=== PATIENT | female | born 1990 | race Hispanic/Latino ===

== ENCOUNTER 2022-01-06 10:41 | Day surgery (SDC) | payer OTHER ==
[2022-01-06] MEDS ORDERED: hydrALAZINE 20 MG/ML VIAL SLOW IVP PRN (11:24)
[2022-01-06] MEDS ORDERED: Lactated Ringer's 1,000 ML IV SCH (11:30)
== END 2022-01-06 14:45 | disposition home health service (06) ==
LOC: CSHLD/OP 10:41
PROVIDERS: ATTEND Obstetrics & Gynecology
DX: Z01.89 Encounter for other specified special examinations (principal); O24.415 Gestational diabetes mellitus in pregnancy, controlled by oral hypoglycemic drugs; Z3A.36 36 weeks gestation of pregnancy
CPT/HCPCS: 76819; 96360; 96361; 99282

== ENCOUNTER 2022-01-11 09:12 | Outpatient (CLI) | payer OTHER | END 2022-01-11 09:13 | disposition home or self-care (01) | LOC: CSHLAB 09:12 | PROVIDERS: ATTEND Student in an Organized Health Care Education/Training Program | DX: Z20.822 Contact with and (suspected) exposure to COVID-19 (principal) | CPT/HCPCS: U0003; U0005 ==

== ENCOUNTER 2022-01-11 15:51 | Inpatient (IN) | payer OTHER ==
[2022-01-11 18:21] VITALS: BMI 38.9
[2022-01-11] MEDS ORDERED: Ibuprofen 800 MG TAB PO PRN (18:21)
[2022-01-11] MEDS ORDERED: HYDROcodone/Acetaminophen 5/325 mg Tablet PO PRN (18:21)
[2022-01-11] MEDS ORDERED: Butorphanol Tartrate 1 MG/ML VIAL SLOW IVP PRN (18:21)
[2022-01-11] MEDS ORDERED: hydrALAZINE 20 MG/ML VIAL SLOW IVP PRN (18:21)
[2022-01-11] MEDS ORDERED: Acetaminophen 500 MG TAB PO PRN (18:21)
[2022-01-11] MEDS ORDERED: Carboprost 250 MCG/ML AMP IM PRN (18:21)
[2022-01-11] MEDS ORDERED: Misoprostol 200 MCG TAB PR PRN (18:21)
[2022-01-11] MEDS ORDERED: Diphenoxylate HCl/Atropine Tablet PO PRN (18:21)
[2022-01-11] MEDS ORDERED: Methylergonovine 0.2 MG/ML VIAL IM PRN (18:21)
[2022-01-11] MEDS ORDERED: Promethazine HCl 25 MG/ML VIAL IM PRN (18:21)
[2022-01-11] MEDS ORDERED: Ondansetron PF 4 MG/2 ML Vial IVP PRN (18:21)
[2022-01-11] MEDS ORDERED: Lidocaine 1% (PF) 30 ML VIAL SC PRN (18:21)
[2022-01-11] MEDS ORDERED: NS w/ Oxytocin 30 units 500 ML IV SCH ×2 (18:30)
[2022-01-11 19:05] LABS: Hemoglobin 12.3 g/dL (12.0-15.5); Mean Corpuscular HGB CONC 33.8 g/dL (32.0-36.0); Mean Corpuscular Volume 91.7 fl (81.6-98.3); Mean Platelet Volume 11.7 fl (7.4-10.4); Platelet Count 181 10x3/uL (150-450); RBC Distribution Width 12.8 % (11.5-14.5); Red Blood Cell (RBC) Count 3.97 10x6/uL (3.90-5.03); White Blood Cell (WBC) Count 9.2 10x3/uL (3.5-10.5)
[2022-01-11 19:35] LABS: Hep B Surf Ag Non-Reactive S/CO (NonReactive); Syphilis Antibody Nonreactive (Nonreactive); Syphilis Antibody Index 0.06 S/CO (<1.00 Non-Reactive)
[2022-01-11 19:36] LABS: HBSAg Index 0.14 S/CO (0-0.99)
[2022-01-11] MEDS: Lactated Ringer's 1,000 ML IV SCH (19:41)
[2022-01-11] MEDS: Misoprostol 100 MCG TAB VAG SCH ×2 (19:56→23:29)
[2022-01-12] MEDS ORDERED: Fentanyl 2 mcg/Bup 0.1% Cadd 100 ML ONE (03:49)
[2022-01-12] MEDS: Lactated Ringer's 1,000 ML IV SCH ×2 (06:16→14:26)
[2022-01-12 11:20] LABS: SARS-CoV-2 NAA Rapid Test Not Detected (NotDetected)
[2022-01-12] MEDS ORDERED: Lanolin Ointment 7 GM TUBE TOP PRN (12:35)
[2022-01-12] MEDS ORDERED: Benzocaine-Menthol 82.5 ML CAN TOP PRN (12:35)
[2022-01-12] MEDS ORDERED: hydrALAZINE 20 MG/ML VIAL SLOW IVP PRN (12:35)
[2022-01-12] MEDS ORDERED: diphenhydrAMINE 25 MG CAP PO PRN (12:35)
[2022-01-12] MEDS ORDERED: Preparation H Ointment 28 GM TUBE PR PRN (12:35)
[2022-01-12] MEDS ORDERED: Ondansetron PF 4 MG/2 ML Vial IVP PRN (12:35)
[2022-01-12] MEDS ORDERED: Boostrix 0.5 ML (Tdap) VIAL IM ONE (12:35)
[2022-01-12] MEDS ORDERED: Milk Of Magnesia 30 ML UDCUP PO PRN (12:35)
[2022-01-12] MEDS ORDERED: HYDROcodone/Acetaminophen 5/325 mg Tablet PO PRN ×2 (12:35)
[2022-01-12] MEDS ORDERED: Bisacodyl 10 MG SUPP PR PRN (12:35)
[2022-01-12] MEDS: Ibuprofen 800 MG TAB PO SCH ×2 (14:07→22:34)
[2022-01-12] MEDS: Misoprostol 100 MCG TAB VAG SCH (14:26)
[2022-01-12] MEDS: Ferrous Sulfate 325 MG TAB PO SCH (14:27)
[2022-01-12] MEDS: Docusate 100 MG CAP PO SCH (22:34)
[2022-01-13] MEDS: Ibuprofen 800 MG TAB PO SCH ×2 (05:20→13:39)
[2022-01-13] MEDS: Ferrous Sulfate 325 MG TAB PO SCH ×2 (08:32→17:12)
[2022-01-13] MEDS: Docusate 100 MG CAP PO SCH (08:54)
[2022-01-13] MEDS ORDERED: Prenatal Vitamin 1 TAB PO SCH (09:00)
[2022-01-13 11:13] VITALS: BP 122/85; TEMP 98.1
== END 2022-01-13 18:35 | disposition home or self-care (01) | DRG 807 ==
LOC: CSHLD 15:51 → CSHPP 01-12 13:00
PROVIDERS: ADMIT Student in an Organized Health Care Education/Training Program; ATTEND Student in an Organized Health Care Education/Training Program
PROC: 10E0XZZ Delivery of Products of Conception, External Approach (ICD-10-PCS; principal; 2022-01-12)
PROC: 10907ZC Drainage of Amniotic Fluid, Therapeutic from Products of Conception, Via Natural or Artificial Opening (ICD-10-PCS; 2022-01-12)
PROC: 3E0P7VZ Introduction of Hormone into Female Reproductive, Via Natural or Artificial Opening (ICD-10-PCS; 2022-01-12)
DX: O36.8130 Decreased fetal movements, third trimester, not applicable or unspecified (principal); Z37.0 Single live birth; Z3A.37 37 weeks gestation of pregnancy; O24.425 Gestational diabetes mellitus in childbirth, controlled by oral hypoglycemic drugs; Z20.822 Contact with and (suspected) exposure to COVID-19; Z79.84 Long term (current) use of oral hypoglycemic drugs
CPT/HCPCS: 36415; 36416; 51702; 85027; 86780; 86850; 86900; 86901; 87340; J2590; J7120; U0002; U0003; U0005